=== PATIENT | female | born 1960 | race Two or more races ===

== ENCOUNTER 2024-05-08 15:35 | Inpatient (IN) | payer MEDICARE, MEDICAID ==
[~2024-05-08] VITALS: Ht 154.9 cm; Wt 54.1 kg
[2024-05-08 16:01] LABS: Basophils # (auto) 0.1 10 ^3/uL (0-0.2); Eosinophils # (auto) 0.2 10 ^3/uL (0-0.8); Hemoglobin 7.5 g/dL (12.2-16.2); Lymphocytes # (auto) 3.4 10 ^3/uL (0.4-5.4); Nucleated Red Blood Cells % 0.1 %
[2024-05-08 16:03] LABS: Basophils % (auto) 0.8 % (0.0-2.0); Eosinophils % (auto) 2.6 % (0.0-7.0); Hematocrit 26.8 % (36.0-46.0); Mean Corpuscular Hemoglobin 19.4 pg (28.0-32.0); Mean Corpuscular Hgb Conc. 28.2 g/dL (32.0-36.0); Mean Corpuscular Volume 68.7 fL (80.0-100.0); Monocytes # (auto) 0.6 10 ^3/uL (0-1.3); Monocytes % (auto) 8.1 % (0.0-12.0); Neutrophils % (auto) 41.5 % (37.0-80.0); Platelet Count (auto) 406 10^3/uL (140-450); Red Cell Distribution Width 18.7 % (11.8-14.3); White Blood Cell 7.2 10^3/uL (4.4-10.8)
[2024-05-08 16:11] LABS: Potassium 4.3 mmol/L (3.5-5.1); Sodium 143 mmol/L (136-145)
[2024-05-08 16:12] LABS: Anion Gap 13 (5-15); Carbon Dioxide 22 mmol/L (20-31)
[2024-05-08 16:13] LABS: Calcium 9.7 mg/dL (8.7-10.4)
[2024-05-08 16:17] LABS: BUN/Creatinine Ratio 11.8 (10.0-20.0); Blood Urea Nitrogen 11 mg/dL (9-23)
--- NOTE | 2024-05-08 16:17 | DVH ---
EXAM: XY CHEST TWO VIEWS ROUTINE CLINICAL HISTORY: chest pain COMPARISON: None TECHNIQUE: Frontal and lateral view of the chest was obtained FINDINGS: Lines and Tubes: None Lungs: No focal consolidation. Pleura: No effusion. No pneumothorax. Cardiomediastinal contours: Unremarkable. There is a large hiatal hernia. Pulmonary vasculature: Within normal limits. Bones: There is severe scoliotic curvature of the thoracolumbar spine. IMPRESSION: 1. No acute cardiopulmonary disease. 2. Large hiatal hernia. 3. Severe scoliotic curvature of the thoracolumbar spine. HS:Y
[2024-05-08 16:32] LABS: Chloride 108 mmol/L (98-107); Glucose 133 mg/dL (74-106)
--- NOTE | 2024-05-08 18:28 | ECG ---
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
--- NOTE | 2024-05-08 20:04 | ED.PDOC ---
History of Present Illness HPI Comments 63F with lupus presents with several months with bilateral achy chest pain that radiates down her arms that has been acutely worse the last 2 days. Patient reports his symptoms are associated with nausea and generalized fatigue. She has been compliant with her medications but reports she does not like to go to doctors. She denies any fever chills dysuria or polyuria sick contacts or recent travel Chief Complaint: Chest Pain Time Seen by MD: 15:41 Reviewed Notes: Nurses Notes Allergies: Uncoded Allergies: PENICILLIN (Allergy, Unknown, 05/08/24) Information Source: Patient Mode of Arrival: Ambulatory Past Medical History Past Medical History (Other): Lupus Constitutional: reports: fatigue Cardiovascular: reports: chest pain All Other Systems: Reviewed and Negative Physical Exam General Appearance: No Apparent Distress, Normal HEENT: Normal ENT Inspection, Pharynx Normal, TMs Normal Neck: Full Range of Motion, Non-Tender, Normal, Normal Inspection Respiratory: Chest Non-Tender, Lungs Clear, No Accessory Muscle Use, No Respiratory Distress, Normal Breath Sounds Cardiovascular: No Edema, No JVD, No Murmur, No Gallop, Normal Peripheral Pulses, Regular Rate/Rhythm Breast Exam: Deferred Gastrointestinal: No Organomegaly, Non Tender, No Pulsatile Mass, Normal Bowel Sounds, Soft Genitalia: Deferred Pelvic: Deferred Rectal: Deferred Extremities: No calf tenderness, Normal capillary refill, Normal inspection, Normal range of motion, Non-tender, No pedal edema Musculoskeletal : Apperance: Normal Neurologic: Alert, crap shooter II-XII nml as Tested, No Motor Deficits, Normal Affect, Normal Mood, No Sensory Deficits Cerebellar Function: Normal Reflexes: Normal Skin: Dry, Normal Color, Warm Lymphatic: No Adenopathy Was a procedure done? Was a procedure done?: No Differential Dx Considerations may include: ACS, CVA, electrolyte abnormality, viral syndrome X-Ray, Labs, Meds, VS Vital Signs Date Time Temp Pulse Resp B/P (MAP) Pulse Ox O2 Delivery O2 Flow Rate FiO2 05/08/24 16:53 85 05/08/24 16:27 98.0 91 16 188/87 (120) 100 05/08/24 15:44 91 Lab Test 05/08/24 18:45 05/08/24 16:35 05/08/24 15:44 Range/Units Troponin I High Sensitivity 9 9 11 </=34 ng/L White Blood Count 7.2 4.4-10.8 10^3/uL Red Blood Count 3.90 L 4.0-5.20 10^6/uL Hemoglobin 7.5 L 12.2-16.2 g/dL Hematocrit 26.8 L 36.0-46.0 % Mean Corpuscular Volume 68.7 L 80.0-100.0 fL Mean Corpuscular Hemoglobin 19.4 L 28.0-32.0 pg Mean Corpuscular Hemoglobin Concent 28.2 L 32.0-36.0 g/dL Red Cell Distribution Width 18.7 H 11.8-14.3 % Platelet Count 406 140-450 10^3/uL Mean Platelet Volume 6.9 6.9-10.8 fL Neutrophils (%) (Auto) 41.5 37.0-80.0 % Lymphocytes (%) (Auto) 47.0 10.0-50.0 % Monocytes (%) (Auto) 8.1 0.0-12.0 % Eosinophils (%) (Auto) 2.6 0.0-7.0 % Basophils (%) (Auto) 0.8 0.0-2.0 % Neutrophils # (Auto) 3.0 1.6-8.6 10 ^3/uL Lymphocytes # (Auto) 3.4 0.4-5.4 10 ^3/uL Monocytes # (Auto) 0.6 0-1.3 10 ^3/uL Eosinophils # (Auto) 0.2 0-0.8 10 ^3/uL Basophils # (Auto) 0.1 0-0.2 10 ^3/uL Nucleated Red Blood Cells 0.1 % Sodium Level 143 136-145 mmol/L Potassium Level 4.3 3.5-5.1 mmol/L Chloride Level 108 H 98-107 mmol/L Carbon Dioxide Level 22 20-31 mmol/L Anion Gap 13 5-15 Blood Urea Nitrogen 11 9-23 mg/dL Creatinine 0.93 0.550-1.02 mg/dL Glomerular Filtration Rate Calc 70 >90 mL/min BUN/Creatinine Ratio 11.8 10.0-20.0 Serum Glucose 133 H 74-106 mg/dL Calcium Level 9.7 8.7-10.4 mg/dL Time of 1ST Reevaluation: 20:03 Reevaluation 1ST: Improved Patient Education/Counseling: Diagnosis, Treatment Family Education/Counseling: No Family Present Departure 1 Departure Time of Disposition: 20:03 (Patient presented with chest pain that was concerning for possible STEMI, ACS, PE, Pneumonia, Muscle Strain, COPD, Dissection. Data: 1. I ordered and reviewed the result of at least 3 labs including a CBC, BMP, and Troponin. 2. I independently interpreted the following tests: EKG which shows sinus arrhythmia and Chest X-ray which shows benign chest.Risk:This patient has a high risk of morbidity due to further diagnostic testing or treatment and may suffer from an acute cardiac or respiratory disorder. Workup reveals concern for ACS versus lupus flare and patient should be admitted for further workup and possible expert consultation. ) Impression: Primary Impression: Chest pain Qualified Codes: R07.9 - Chest pain, unspecified Additional Impression: Lupus Disposition: ADMITTED INPATIENT Admit to: Med Surg Condition: Serious Critical Care Note Critical Care Time?: No Stability Stability form required: No Heart Score Heart Score: Heart Score Response (Comments) Value History Moderate Suspicious 1 EKG Repolarization Disturb 1 Age 45-64 1 Risk Factors 1 or 2 risk factors 1 Troponin 1-2 x's Normal limit 1 Total 5 QUE HUERTA MD May 08, 2024 20:04
[2024-05-08] MEDS ORDERED: DOCUSATE SOD 100 MG CAP PO PRN (20:30)
[2024-05-08] MEDS ORDERED: NITROGLYCERIN 0.4 MG SL TAB SL PRN (20:30)
[2024-05-08] MEDS ORDERED: ACETAMINOPHEN 325 MG TAB PO PRN (20:30)
[2024-05-08] MEDS ORDERED: MORPHINE SULFATE INJ 2 MG/ml SYRG IV PRN ×2 (20:30)
[2024-05-08] MEDS ORDERED: ONDANSETRON HCL 4 MG/2 ML VIAL IV PRN (20:30)
[2024-05-08] MEDS ORDERED: ATORVASTATIN 20 MG TAB PO ONE (20:45)
[2024-05-08 22:16] LABS: Erythrocyte Sedimentation Rate 14 mm/hr (0-20)
[2024-05-08 22:32] LABS: Alanine Aminotransferase 10 U/L (7-40); Albumin 4.2 g/dL (3.2-4.8); Alkaline Phosphatase 62 U/L (46-116); Anion Gap 6 (5-15); Aspartate Aminotransferase 13 U/L (13-40); BUN/Creatinine Ratio 15.1 (10.0-20.0); Bilirubin, Total 0.5 mg/dL (0.2-1.0); Blood Alcohol < 3.0 mg/dL (<10); Blood Urea Nitrogen 14 mg/dL (9-23); Calcium 9.6 mg/dL (8.7-10.4); Carbon Dioxide 23 mmol/L (20-31); Glucose 94 mg/dL (74-106); Magnesium 2.2 mg/dL (1.6-2.6); Potassium 4.6 mmol/L (3.5-5.1); Sodium 141 mmol/L (136-145); Total Protein 7.5 g/dL (5.7-8.2)
[2024-05-08 22:33] LABS: Chloride 112 mmol/L (98-107)
[2024-05-08] MEDS: ASPirin 81 mg TAB PO ONE (22:37)
[2024-05-08] MEDS: ATORVASTATIN 20 MG TAB PO SCH (22:37)
[2024-05-08 22:38] VITALS: PULSE 84; RESP 16; O2SAT 97
--- NOTE | 2024-05-08 22:41 | DVHHPRES ---
History of Present Illness Resident Creating Document: NASEEM DUMONT RESIDENT History of Present Illness Patient is 63-year-old female with past medical history of lupus, scoliosis, arthritis, hypertension came with a complaint of chest pain. As per patient she has been having bilateral chest pain that started 3-4 month before but lately it got worse last night, pain was 10 x 10 max severity, intermittent, radiating to the bilateral arm, sharp in nature increased with walking, breathing, decreased with resting. Patient also endorsed some shortness of breath with chest pain th at increased with walking, breathing and relieved with leaning forward. On further inquiry patient also reported feeling palpitation for a while. Patient denied any fever, cough, constipation or diarrhea, dysarthria or change in vision, melena or hematemesis or bloody diarrhea. Initial lab workup revealed patient has severe anemia with hemoglobin 7.5, MCV 68.7, HCT 26.8, MCHC HC 28.2, MCH 19.4, RDW 18.7, elevated BNP 336 0.15, D-dimer 0.42, alcohol less than 3. other initial lab workup including troponin I was negative. UDS negative, serum alcohol >3. Urinalysis negative for UTI. CXR revealed no acute cardiopulmonary disease, large hiatal hernia, severe scoliosis of the thoracolumbar spine. Past Medical History lupus, scoliosis, arthritis, hypertension Past Surgical History Bilateral cataract surgery Family History No significant family history Past Social History Denies smoking/alcoholism/drug abuse, lives with a granddaughter and her at home Review of Systems Review of Systems Allergy- penicillin Patient was seen today at the bedside. Patient Respiratory- denies cough or wheezing Gastrointestinal- denies any rectal bleeding, nausea or vomiting Musculoskeletal-denies acute joint swelling or tenderness or redness Neurological- denies acute dysarthria, dysphagia, change in vision Psychiatry- denies depression or SI or HI Skin- denies acute rash or purpura Allergies: Coded Allergies: Penicillins (Verified Allergy, Unknown, 05/08/24) Medications Current Medications Medications Dose Ordered Sig/Saroj Route Start Time Stop Time Status Last Admin Dose Admin Ondansetron HCl 4 mg Q4HP PRN IV 05/08/24 20:30 Docusate Sodium 100 mg BIDPRN PRN PO 05/08/24 20:30 Acetaminophen 650 mg Q6HP PRN PO 05/08/24 20:30 Morphine Sulfate 2 mg Q4HPRN PRN IV 05/08/24 20:30 Nitroglycerin 0.4 mg Q5MINP PRN SL 05/08/24 20:30 Morphine Sulfate 2 mg Q30M PRN IV 05/08/24 20:30 Aspirin 81 mg DAILY PO 05/09/24 10:00 Atorvastatin Calcium 40 mg HS PO 05/08/24 22:00 Exam Vital Signs Vital Signs Date Time Temp Pulse Resp B/P (MAP) Pulse Ox O2 Delivery O2 Flow Rate FiO2 05/08/24 16:53 85 05/08/24 16:27 98.0 16 188/87 (120) 100 Exam General examination- awake, alert oriented, conversant HEENT- PEERLA, no acute nasal discharge Cardiovascular- S1-S2 audible, rate and rhythm regular, no murmur Respiratory- CTAB, no wheeze or rhonchi Gastrointestinal-nontender, bowel sound+. Nondistended Musculoskeletal-scoliosis, joint deformity of the bilateral hands Lower extremity- trace leg edema Neurological- cranial nerves intact, no acute dysarthria or dysphagia Psychiatry- denies depression or SI or HI Skin- fragile skin Labs/Xrays Labs Test 05/08/24 21:55 05/08/24 18:45 05/08/24 15:44 Range/Units D-Dimer, Quantitative 0.42 0.0-0.49 mg/L FEU Troponin I High Sensitivity 9 </=34 ng/L C-Reactive Protein High Sensitivity 0.04 <1.0 mg/dL Thyroid Stimulating Hormone (TSH) 2.05 0.55-4.78 uIU/mL White Blood Count 7.2 4.4-10.8 10^3/uL Red Blood Count 3.90 L 4.0-5.20 10^6/uL Hemoglobin 7.5 L 12.2-16.2 g/dL Hematocrit 26.8 L 36.0-46.0 % Mean Corpuscular Volume 68.7 L 80.0-100.0 fL Mean Corpuscular Hemoglobin 19.4 L 28.0-32.0 pg Mean Corpuscular Hemoglobin Concent 28.2 L 32.0-36.0 g/dL Red Cell Distribution Width 18.7 H 11.8-14.3 % Platelet Count 406 140-450 10^3/uL Mean Platelet Volume 6.9 6.9-10.8 fL Neutrophils (%) (Auto) 41.5 37.0-80.0 % Lymphocytes (%) (Auto) 47.0 10.0-50.0 % Monocytes (%) (Auto) 8.1 0.0-12.0 % Eosinophils (%) (Auto) 2.6 0.0-7.0 % Basophils (%) (Auto) 0.8 0.0-2.0 % Neutrophils # (Auto) 3.0 1.6-8.6 10 ^3/uL Lymphocytes # (Auto) 3.4 0.4-5.4 10 ^3/uL Monocytes # (Auto) 0.6 0-1.3 10 ^3/uL Eosinophils # (Auto) 0.2 0-0.8 10 ^3/uL Basophils # (Auto) 0.1 0-0.2 10 ^3/uL Nucleated Red Blood Cells 0.1 % Erythrocyte Sedimentation Rate 14 0-20 mm/hr B-Type Natriuretic Peptide 336.15 0-100 pg/mL Assessment/Plan Assessment/Plan #Acute on chronic chest pain under evaluation -rule out acute coronary syndrome -EKG no ST elevation -troponin I negative -D-dimer nonsignificant - No acute cardiopulmonary disease. Large hiatal hernia. Severe scoliotic curvature of the thoracolumbar spine. -continue aspirin 81 mg daily -continue atorvastatin 40 mg q.h.s. #Hypertensive urgency -BP 188/87, 190/94 -patient complained of chest pain -continue hydralazine 10 mg q.6h p.r.n. -amlodipine 5 mg p.o. daily -monitor BP #Suspected hypertensive heart failure -BNP 336 -continue Lasix 20 mg IV daily -pending echo 2D #Severe microcytic hypochromic anemia likely iron-deficiency anemia -HGB-7.5 -serum iron 16, ferritin 3.7, -as per Ganzoni equation for [id number] -continue IV iron as prescribed -ordered FOBT -ordered blood smear #Lupus -follow up outpatient #Scoliosis -follow up outpatient # Arthritis -continue pain medication as prescribed # hiatal hernia -follow up outpatient Goals of care/advance care planning; FULL CODE; discussed with the patient >15 minutes PUD prophylaxis: Pantoprazole DVT prophylaxis: Lovenox Plan discussed with Dr. Paramr, nursing staff, patient Total time spent on patient evaluation, chart review, assessment and plan, discussion discussion >30 minutes Plan discussed with: Patient Plan discussed with: Patient, Daughter, Other (RN) My Orders Orders - NASEEM DUMONT Procedure Category Date Status Time Admit ADMIT 05/08/24 Transmitted 20:27 Code Status CODE 05/08/24 Transmitted 20:27 Ondansetron Hcl PHA 05/08/24 In Process (Zofran) 20:30 Docusate Sodium PHA 05/08/24 In Process Capsule (Colace 20:30 Complete Blood Count LAB 05/09/24 Verified 04:00 Comprehensive LAB 05/09/24 Verified Metabolic Panel 04:00 Cardiac DIET 05/09/24 Transmitted Diet-2gna,Lofat,Lochol Breakfast Acetaminophen Tablet PHA 05/08/24 In Process (Tylenol Tablet) 20:30 Morphine Sulfate PHA 05/08/24 In Process Injection 20:30 Nitroglycerin PHA 05/08/24 In Process Sublingual (Ntrostat 20:30 Morphine Sulfate PHA 05/08/24 In Process Injection 20:30 Oxygen By Nasal RT 05/08/24 Transmitted Cannula 20:27 Stat Ekg For Chest [facility] 05/08/24 In Process Pain 20:27 Notify Md Of Changes [facility] 05/08/24 In Process From Base 20:27 Auto Body Repair Teacher For [facility] 05/08/24 In Process 24 Hours 20:27 Emergency Dysrhythmia [facility] 05/08/24 In Process Protocol 20:27 Rhythm Strips Once [facility] 05/08/24 In Process Every Shift 20:27 Magnesium LAB 05/08/24 In Process 20:31 Comprehensive LAB 05/08/24 In Process Metabolic Panel 20:31 Drug Screen LAB 05/08/24 Logged 20:31 Blood Alcohol LAB 05/08/24 In Process 20:31 Echo 2d Mode Cardiac US 05/08/24 Logged DOP 20:31 Aspirin Tablet PHA 05/09/24 In Process 10:00 Atorvastatin (Lipitor) PHA 05/08/24 In Process 22:00 Date of Service: May 08, 2024 Billing Provider: TOY PARMAR MD Secondary Visit Codes: [id number] CARE PLAN 30 MINUTES NASEEM DUMONT May 08, 2024 22:41 TOY PARMAR MD May 12, 2024 18:16
[2024-05-08] MEDS ORDERED: hydrALAZINE HCL 20 MG/ML VL IV PRN (22:45)
[2024-05-08] MEDS ORDERED: amLODIPine BESYLATE 5 MG TAB PO ONE (22:45)
[2024-05-08] MEDS ORDERED: hydrALAZINE HCL 20 MG/ML VL IV ONE (22:45)
[2024-05-08] MEDS ORDERED: HYDROcodone-ACET 10/325MG TAB PO PRN (22:45)
[2024-05-08] MEDS: amLODIPine BESYLATE 5 MG TAB PO ONE (23:06)
[2024-05-08] MEDS: HYDROcodone-ACET 10/325MG TAB PO ONE (23:07)
[2024-05-08] MEDS: hydrALAZINE HCL 20 MG/ML VL IV ONE (23:49)
[2024-05-09] VITALS (11 sets, daily range): BP systolic 108–159; BP diastolic 64–91; PULSE 82–96; RESP 9–20; TEMP 97.6–98.9; O2SAT 96–100
[2024-05-09 00:23] LABS: Ferritin 3.7 ng/mL (10-291)
[2024-05-09 00:24] LABS: Folate (Folic Acid) 13.5 ng/mL (>5.38)
[2024-05-09] MEDS: ENOXAPARIN SOD 30 MG/0.3 ML SYRINGE SC ONE (00:39)
[2024-05-09] MEDS: PANTOPRAZOLE 40 MG TAB PO ONE (00:39)
[2024-05-09] MEDS: FUROSEMIDE 40 MG/4 ML VIAL IV ONE (00:51)
[2024-05-09] MEDS: ENOXAPARIN SOD 30 MG/0.3 ML SYRINGE SC SCH (00:52)
[2024-05-09] MEDS ORDERED: TEMAZEPAM 15 MG CAP PO PRN (01:15)
[2024-05-09] MEDS: TEMAZEPAM 15 MG CAP PO ONE (01:19)
[2024-05-09] MEDS ORDERED: HYDR-4072 PO (01:37)
[2024-05-09 03:37] LABS: Urine Bacteria None Seen /hpf (None Seen)
[2024-05-09 03:44] LABS: Urine Blood Negative /uL (Negative); Urine Clarity Clear (Clear); Urine Color Colorless (Yellow); Urine Protein, UAD Negative (Negative); Urine Specific Gravity 1.007 (1.001-1.035); Urine Urobilinogen Normal (Negative); Urine WBC <1 /hpf (0 - 5); Urine pH 5.5 (5.0-9.0)
[2024-05-09 03:56] LABS: Amphetamine Screen, Urine Neg (NEGATIVE); Barbiturate Scree,Urine Neg (NEGATIVE); Benzodiazephine Screen, Urine Neg (NEGATIVE)
[2024-05-09 03:57] LABS: Cannabinoid Screen, Urine Neg (NEGATIVE); Cocaine Screen, Urine Neg (NEGATIVE); Opiate Scree,Urine Neg (NEGATIVE); Phencyclidine Screen, Urine Neg (NEGATIVE)
[2024-05-09] MEDS: HYDROcodone-ACET 10/325MG TAB PO PRN (08:41)
[2024-05-09] MEDS: ASPirin 81 mg TAB PO SCH (10:09)
[2024-05-09] MEDS: amLODIPine BESYLATE 5 MG TAB PO SCH (10:09)
[2024-05-09] MEDS: FUROSEMIDE 20 MG/2 ML VIAL IV SCH (10:10)
[2024-05-09 10:44] LABS: Basophils # (auto) 0.1 10 ^3/uL (0-0.2); Eosinophils # (auto) 0.1 10 ^3/uL (0-0.8); Mean Corpuscular Volume 66.9 fL (80.0-100.0); Monocytes # (auto) 0.8 10 ^3/uL (0-1.3); Nucleated Red Blood Cells % 0.1 %; Platelet Count (auto) 370 10^3/uL (140-450)
[2024-05-09 10:47] LABS: Basophils % (auto) 1.3 % (0.0-2.0); Eosinophils % (auto) 1.9 % (0.0-7.0); Hematocrit 23.8 % (36.0-46.0); Lymphocytes % (auto) 32.2 % (10.0-50.0); Mean Corpuscular Hemoglobin 19.6 pg (28.0-32.0); Mean Corpuscular Hgb Conc. 29.3 g/dL (32.0-36.0); Monocytes % (auto) 13.1 % (0.0-12.0); Neutrophils # (auto) 3.1 10 ^3/uL (1.6-8.6); Neutrophils % (auto) 51.5 % (37.0-80.0); Red Blood Cells 3.56 10^6/uL (4.0-5.20); Red Cell Distribution Width 18.6 % (11.8-14.3); White Blood Cell 6.1 10^3/uL (4.4-10.8)
[2024-05-09 11:13] LABS: Alanine Aminotransferase 12 U/L (7-40); Albumin 4.2 g/dL (3.2-4.8); Alkaline Phosphatase 59 U/L (46-116); Anion Gap 7 (5-15); BUN/Creatinine Ratio 15.8 (10.0-20.0); Bilirubin, Total 0.9 mg/dL (0.2-1.0); Blood Urea Nitrogen 16 mg/dL (9-23); Carbon Dioxide 27 mmol/L (20-31); Chloride 104 mmol/L (98-107); Sodium 138 mmol/L (136-145)
[2024-05-09 11:14] LABS: Total Protein 7.4 g/dL (5.7-8.2)
[2024-05-09 11:16] LABS: Aspartate Aminotransferase 12 U/L (13-40); Glucose 130 mg/dL (74-106)
[2024-05-09 11:58] LABS: Hypochromia Moderate
[2024-05-09 11:59] LABS: Platelet Estimate Adequate
[2024-05-09] MEDS: IRON SUCROSE COMPLEX 110 ML IV SCH (12:30)
--- NOTE | 2024-05-09 13:46 | DVHSR ---
APPROVED REPORT EXAM: Two-dimensional and M-mode echocardiogram with Doppler and color Doppler. Blood Pressure: 138/77 mmHg INDICATION Chest Pain RISK FACTORS Height: 5'1", Weight: 119 DIMENSIONS LVDd4.0 (3.8-5.7cm)LA (2D)3.2 (1.9-4.0cm)Aortic Root3.5 (2.0-3.7cm) LVDs2.9 (2.5-4.0cm)LA (MM) (1.9-4.0cm)Aortic Cusp Exc1.8 (1.5-2.0cm) EF (%) 55.0 (55-70%)Rt. Atrium3.4 (1.9-4.0cm)Asc. Aorta4.1 cm IVSd1.1 (0.7-1.1cm)RV (D) (1.8-2.4cm) PWd0.9 (0.7-1.1cm) Mitral Valve MitralMitral Stenosis E wave0.62m/sMV Mean GR.mmHg A wave0.76m/sMV Peak GR.mmHg E/A ratio0.82D MVAcm2 DECEL [id number] 1/2 Timems Aortic Valve Aortic ValveAortic Stenosis V10.83m/Judith Mean GR.3mmHg V21.19m/Judith Peak GR.6mmHg LVOT Diameter2.4 (1.8-2.4cm)Doppler AVA3.15cm2 2D AVA3.06cm2 Pulmonic Valve V20.90m/s Other Information Quality : Technically LimitedRhythm : Technically limited study due to body habitus. Conclusion Normal left ventricular size and dimension. Normal left ventricular systolic function estimated ejec tion fraction 55%. There is a grade 1 diastolic dysfunction. Normal right ventricular size and dimension. Normal right ventricular systolic function. Normal biatrial size and dimension. Normal aortic valve structure and function. Normal mitral valve structure and function. Normal tricuspid valve structure and function. The pulmonary valve is grossly normal. No pericardial effusion.
[2024-05-09 14:16] LABS: Hemoglobin 6.8 g/dL (12.2-16.2)
--- NOTE | 2024-05-09 20:38 | DVHPNRES ---
Progress Note Date Seen: May 09, 2024 Resident Creating Document: JHNiurkaJJANE SaeedPERLAPEG RESIDENT Medical Necessity Reason Pt with a Central, PICC or Fol: No Subjective Review of Systems Patient is 63 year old female with a past medical history as described below came to the ED with a chief complaint of Chest Pain. Patient reported that for the last about 4 months, she has been having chest pain exacerbated on exertion while walking more than normal distances, pain radiated across the chest, intermittant in nature and radiating the bilateral upper shoulders, no association with taking deep breaths or coughing. Patient has recently been also experiencing chest pain while sleeping and she gets up in the middle of the night, sits up which relieves the pain. patient denies of association of pain with food. no difficulty swallowing, no pain on swallowing. denies nausea, vomiting, diarrhoea. Patient denies recent sickness. 12 lead ECG showed sinus rhythm with no evidence of acute ischaemia. Troponin levels were within normal limits. Past medical history: Lupus, scoliosis, HTN Past surgical history: Foot surgery, breast implants, cataract surgery, C section Social history: denies smoking, alcohol, drug use Home medications: hydroxychloroquine 200mg once daily, norco for pain Review of systems Patient seen and examined at bedside. A/O X 4. does not report chest pain at exam in the morning No nausea, vomiting, diarrhoea Hemoglobin repeated - dropped to 6.8mg/dl, transfused with 1 unit PRBC patient has not passed stool. Objective vital signs Vital Sign Date Time Temp Pulse Resp B/P (MAP) Pulse Ox O2 Delivery O2 Flow Rate FiO2 05/09/24 16:54 98.2 91 18 129/64 (85) 96 98.2 05/09/24 08:00 Room Air* 0 21 Total Intake and Output 05/08/24 05/08/24 05/09/24 15:00 23:00 07:00 Intake Total 400 ml Balance 400 ml medications Current Medications Medications Dose Ordered Sig/Saroj Route Start Time Stop Time Status Last Admin Dose Admin Ondansetron HCl 4 mg Q4HP PRN IV 05/08/24 20:30 Docusate Sodium 100 mg BIDPRN PRN PO 05/08/24 20:30 Acetaminophen 650 mg Q6HP PRN PO 05/08/24 20:30 Nitroglycerin 0.4 mg Q5MINP PRN SL 05/08/24 20:30 Morphine Sulfate 2 mg Q30M PRN IV 05/08/24 20:30 Aspirin 81 mg DAILY PO 05/09/24 10:00 05/09/24 10:09 81 MG Atorvastatin Calcium 40 mg HS PO 05/08/24 22:00 05/08/24 22:37 40 MG Hydralazine HCl 10 mg Q6HP PRN IV 05/08/24 22:45 Amlodipine Besylate 5 mg DAILY PO 05/09/24 10:00 05/09/24 10:09 5 MG Acetaminophen/ Hydrocodone Bitart 1 tab Q6HP PRN PO 05/08/24 22:45 05/09/24 15:16 1 TAB Enoxaparin Sodium 30 mg DAILY@0100 SC 05/09/24 01:00 Furosemide 20 mg DAILY IV 05/09/24 10:00 05/09/24 10:10 20 MG Temazepam 15 mg HSPRN PRN PO 05/09/24 01:15 Iron Sucrose 110 ml @ 110 mls/hr DAILY@1200 IV 05/09/24 12:00 05/13/24 12:59 05/09/24 12:30 110 MLS/HR Pantoprazole Sodium 40 mg BID IV 05/09/24 22:00 Examination Physical Examination Gen - mild conjunctival pallor , no icterus, no cyanosis, no clubbing, no LAD, no edema. Skin - Patients skin is warm and dry, looks slightly pale HEENT - normocephalic, atraumatic, dry mucous membranes. Neck - full ROM, no LAD, no JVD. Pulmonary - B/L equal breath sounds heard with bibasilar crackles, no wheezing. cardiovascular - normal S1,S2 heard. no murmurs heard. bowel sounds heard at the left lower sternal border. GI - soft abdomen without tenderness to palpation. no hepatospleenomegaly. Bowel sounds normoactive Neurological - Patient is A/O X 3 . Bilateral upper extremity strength 5/5, bilateral lower extremity strength 5/5, no facial droop, normal speech, no tremor, no sensory loss laboratory and microbiology Laboratory Tests 05/09/24 12:56 05/09/24 10:33 Test 05/09/24 10:33 Range/Units Serum Glucose 130 H 74-106 mg/dL Problem List/Assessment/Plan Problem List/Assessment/Plan Assessment and Plan # Chest Pain, ruled out ACS - troponin within normal limits - 12 lead ECG shows sinus rhythm with no evidence of acute ischaemia - on aspirin 81mg daily - atorvastatin 40mg daily # Hypertensive Urgency - given hydralazine 10 mg IV once - started on amlodipine 5mg daily # Chest pain likely d/t ?dyspepsia, GERD # Dyspepsia # Hiatal Hernia - large hiatal hernia seen on chest X ray - started on protonix 40 mg Bid IV # Microcytic hypochromic anemia # Iron deficiency # ?Acute GI bleed - Hgb 7.5-->7--> 6.8 - patient given 1U PRBC - Iron panel shows low iron, low ferritin, low % saturation - stool occult blood pending Goals of care discussed with the patient for over 27 mins. Full code Plan discussed with Plan discussed with: Patient My Orders My Orders Orders - JASMINA ATWOOD Procedure Category Date Status Time Discontinue Tele RICHARD 05/09/24 In Process 10:50 Transfer Orders XFER 05/09/24 Transmitted 10:50 Type And Screen BBK 05/09/24 In Process 10:54 Stool Occult Blood LAB 05/09/24 Logged 10:54 Packedcell-Noactive BBK 05/09/24 In Process Bleeding 15:58 Pulse Ox Cont Per Day RT 05/09/24 Logged 15:58 Vital Signs RICHARD 05/09/24 In Process 15:58 Administer Blood RICHARD 05/09/24 In Process Products 15:58 Clear Liq Diet DIET 05/09/24 Transmitted Dinner Pantoprazole PHA 05/09/24 In Process (Protonix) 22:00 Complete Blood Count LAB 05/10/24 Verified 04:00 Comprehensive LAB 05/10/24 Verified Metabolic Panel 04:00 Vitamin B12 LAB 05/10/24 Verified 04:00 Folate (Folic Acid) LAB 05/10/24 Verified 04:00 Date of Service: May 09, 2024 Billing Provider: ELLEN STEARNS MD Common Visit Codes: [id number] INP/OBS CARE(HIGH) JASMINA ATWOOD May 09, 2024 20:38 ELLEN STEARNS MD May 13, 2024 09:23
[2024-05-09] MEDS: PANTOPRAZOLE 40 MG/10 ML VIAL INJ IV SCH (21:13)
[2024-05-10 01:00] VITALS: BP 111/78; PULSE 83; RESP 17; TEMP 97.4; O2SAT 93
[2024-05-10 02:39] VITALS: BP 120/79; PULSE 79; RESP 18; TEMP 97.8
[2024-05-10 05:00] VITALS: BP 100/68; PULSE 83; RESP 18; TEMP 98; O2SAT 83
[2024-05-10] MEDS ORDERED: PANTOPRAZOLE 40 MG TAB PO SCH (06:00)
[2024-05-10 06:46] LABS: Eosinophils # (auto) 0.1 10 ^3/uL (0-0.8); Eosinophils % (auto) 2.1 % (0.0-7.0); Monocytes # (auto) 0.6 10 ^3/uL (0-1.3); Nucleated Red Blood Cells % 0.1 %
[2024-05-10 06:49] LABS: Basophils # (auto) 0 10 ^3/uL (0-0.2); Basophils % (auto) 0.7 % (0.0-2.0); Hematocrit 27.9 % (36.0-46.0); Hemoglobin 8.6 g/dL (12.2-16.2); Lymphocytes # (auto) 3.2 10 ^3/uL (0.4-5.4); Lymphocytes % (auto) 51.8 % (10.0-50.0); Mean Corpuscular Hemoglobin 21.2 pg (28.0-32.0); Mean Corpuscular Hgb Conc. 30.9 g/dL (32.0-36.0); Mean Corpuscular Volume 68.4 fL (80.0-100.0); Monocytes % (auto) 9.8 % (0.0-12.0); Neutrophils # (auto) 2.2 10 ^3/uL (1.6-8.6); Neutrophils % (auto) 35.6 % (37.0-80.0); Platelet Count (auto) 332 10^3/uL (140-450); Red Blood Cells 4.08 10^6/uL (4.0-5.20); Red Cell Distribution Width 18.6 % (11.8-14.3); White Blood Cell 6.1 10^3/uL (4.4-10.8)
[2024-05-10 07:05] LABS: Alanine Aminotransferase 10 U/L (7-40); Alkaline Phosphatase 57 U/L (46-116); Anion Gap 10 (5-15); Aspartate Aminotransferase 14 U/L (13-40); BUN/Creatinine Ratio 15.2 (10.0-20.0); Blood Urea Nitrogen 15 mg/dL (9-23); Calcium 9.7 mg/dL (8.7-10.4); Carbon Dioxide 26 mmol/L (20-31); Chloride 106 mmol/L (98-107); Glucose 86 mg/dL (74-106); Potassium 3.7 mmol/L (3.5-5.1); Sodium 142 mmol/L (136-145); Total Protein 6.8 g/dL (5.7-8.2)
[2024-05-10 07:06] LABS: Folate (Folic Acid) 15.65 ng/mL (>5.38)
[2024-05-10 07:08] LABS: Bilirubin, Total 1.2 mg/dL (0.2-1.0)
[2024-05-10 08:00] VITALS: PULSE 76; PULSE 77; RESP 98
[2024-05-10 09:00] VITALS: BP 137/77; PULSE 76; RESP 16; TEMP 97.9; O2SAT 98
[2024-05-10] MEDS ORDERED: HYDR200T36 PO (10:37)
[2024-05-10 12:45] VITALS: BP 120/65; PULSE 72; RESP 18; TEMP 97.8; O2SAT 98
[2024-05-10] MEDS ORDERED: SUCR1TAB31 OR (13:17)
[2024-05-10] MEDS ORDERED: AMLO1TAB22 PO (13:17)
[2024-05-10] MEDS ORDERED: PANT40TA2 PO (13:17)
--- NOTE | 2024-05-10 21:47 | DVHDSRES ---
Discharge Summary Date of Admission Resident Creating Document: JASMINA ATWOOD RESIDENT May 08, 2024 at 20:27 Date of Discharge: May 10, 2024 Admitting Diagnosis #Acute on chronic chest pain under evaluation -rule out acute coronary syndrome #Hypertensive urgency #Suspected hypertensive heart failure #Severe microcytic hypochromic anemia likely iron-deficiency anemia #Lupus #Scoliosis # Arthritis # hiatal hernia Wounds: no wounds Labs/Diagnostic Data: Laboratory Results Test 05/10/24 05:45 05/09/24 10:33 05/09/24 03:08 05/08/24 23:45 White Blood Count 6.1 10^3/uL (4.4-10.8) Red Blood Count 4.08 10^6/uL (4.0-5.20) Hemoglobin 8.6 g/dL (12.2-16.2) Hematocrit 27.9 % (36.0-46.0) Mean Corpuscular Volume 68.4 fL (80.0-100.0) Mean Corpuscular Hemoglobin 21.2 pg (28.0-32.0) Mean Corpuscular Hemoglobin Concent 30.9 g/dL (32.0-36.0) Red Cell Distribution Width 18.6 % (11.8-14.3) Platelet Count 332 10^3/uL (140-450) Mean Platelet Volume 7.5 fL (6.9-10.8) Neutrophils (%) (Auto) 35.6 % (37.0-80.0) Lymphocytes (%) (Auto) 51.8 % (10.0-50.0) Monocytes (%) (Auto) 9.8 % (0.0-12.0) Eosinophils (%) (Auto) 2.1 % (0.0-7.0) Basophils (%) (Auto) 0.7 % (0.0-2.0) Neutrophils # (Auto) 2.2 10 ^3/uL (1.6-8.6) Lymphocytes # (Auto) 3.2 10 ^3/uL (0.4-5.4) Monocytes # (Auto) 0.6 10 ^3/uL (0-1.3) Eosinophils # (Auto) 0.1 10 ^3/uL (0-0.8) Basophils # (Auto) 0 10 ^3/uL (0-0.2) Nucleated Red Blood Cells 0.1 % Sodium Level 142 mmol/L (136-145) Potassium Level 3.7 mmol/L (3.5-5.1) Chloride Level 106 mmol/L (98-107) Carbon Dioxide Level 26 mmol/L (20-31) Anion Gap 10 (5-15) Blood Urea Nitrogen 15 mg/dL (9-23) Creatinine 0.99 mg/dL (0.550-1.02) Glomerular Filtration Rate Calc 65 mL/min (>90) BUN/Creatinine Ratio 15.2 (10.0-20.0) Serum Glucose 86 mg/dL (74-106) Calcium Level 9.7 mg/dL (8.7-10.4) Total Bilirubin 1.2 mg/dL (0.2-1.0) Aspartate Amino Transferase (AST) 14 U/L (13-40) Alanine Aminotransferase (ALT) 10 U/L (7-40) Alkaline Phosphatase 57 U/L (46-116) Total Protein 6.8 g/dL (5.7-8.2) Albumin 4.0 g/dL (3.2-4.8) Vitamin B12 Level 384 pg/mL (211-911) Folic Acid 15.65 ng/mL (>5.38) Platelet Estimate Adequate Hypochromasia (manual) Moderate Microcytosis Moderate Schistocytes Few Magnesium Level 1.9 mg/dL (1.6-2.6) Iron Level 17 ug/dL (50-170) Total Iron Binding Capacity 425 ug/dL (250-425) Percent Iron Saturation 4.0 % (15-50) Urine Color Colorless (Yellow) Urine Clarity Clear (Clear) Urine pH 5.5 (5.0-9.0) Urine Specific [place] 1.007 (1.001-1.035) Urine Protein Negative (Negative) Urine Ketones Negative (Negative) Urine Blood Negative /uL (Negative) Urine Nitrite Negative (Negative) Urine Bilirubin Negative (Negative) Urine Urobilinogen Normal mg/dL (Negative) Urine Leukocyte Esterase Negative /uL (Negative) Urine RBC 3 /hpf (0 - 4) Urine WBC <1 /hpf (0 - 5) Urine Squamous Epithelial Cells Few /hpf (<5) Urine Bacteria None seen /hpf (None Seen) Urine Glucose Normal mg/dL (Normal) Urine Opiates Screen Neg (NEGATIVE) Urine Fentanyl Screen Neg (NEGATIVE) Urine Barbiturates Screen Neg (NEGATIVE) Urine Phencyclidine Screen Neg (NEGATIVE) Urine Amphetamines Screen Neg (NEGATIVE) Urine Benzodiazepines Screen Neg (NEGATIVE) Urine Cocaine Screen Neg (NEGATIVE) Urine Cannabinoids Screen Neg (NEGATIVE) Ferritin 3.7 ng/mL (10-291) Test 05/08/24 21:55 05/08/24 18:45 05/08/24 15:44 Plasma/Serum Blood Alcohol < 3.0 mg/dL (<10) D-Dimer, Quantitative 0.42 mg/L FEU (0.0-0.49) Troponin I High Sensitivity 9 ng/L (</=34) C-Reactive Protein High Sensitivity 0.04 mg/dL (<1.0) Thyroid Stimulating Hormone (TSH) 2.05 uIU/mL (0.55-4.78) Erythrocyte Sedimentation Rate 14 mm/hr (0-20) B-Type Natriuretic Peptide 336.15 pg/mL (0-100) Other Laboratory Tests 05/10/24 05:45 Brief Hx & Hospital Course: HPI Patient is 63 year old female with a past medical history as described below came to the ED with a chief complaint of Chest Pain. Patient reported that for the last about 4 months, she has been having chest pain exacerbated on exertion while walking more than normal distances, pain radiated across the chest, intermittant in nature and radiating the bilateral upper shoulders, no association with taking deep breaths or coughing. Patient has recently been also experiencing chest pain while sleeping and she gets up in the middle of the night, sits up which relieves the pain. patient denies of association of pain with food. no difficulty swallowing, no pain on swallowing. denies nausea, vomiting, diarrhoea. Patient denies recent sickness. 12 lead ECG showed sinus rhythm with no evidence of acute ischaemia. Troponin levels were within normal limits. Past medical history: Lupus, scoliosis, HTN Past surgical history: Foot surgery, breast implants, cataract surgery, C section Social history: denies smoking, alcohol, drug use Home medications: hydroxychloroquine 200mg once daily, norco for pain Hospital course As the patient came to the hospital with the chief complaint of chest pain, 12 lead ECG showed sinus rhythm with no evidence of acute ischaemia. Troponin levels were within normal limits. ACS was ruled out. Blood pressure elevated at the time of admission, IV hydralazine was given and the patient was started on amlodipine 5 mg daily. Chest X ray revealed large hiatal hernia. Patient had a low hemoglobin on admission which further dropped to 6.8g/dl and 1 unit of PRBC was transfused. Protonix 40mg IV was started and the patient was put on clear liquid diet. Hgb improved to 8.6g/dl Patient denied chest pain, abdominal pain, nausea, vomiting or diarrhoea. Patient was discharged in stable condition to home. Discharge Diagnosis # Chest Pain, ruled out ACS # Hypertensive Urgency # Chest pain likely d/t ?dyspepsia, GERD # Dyspepsia # Hiatal Hernia # Microcytic hypochromic anemia # Iron deficiency # ?Acute GI bleed Discharge Plan Follow up in the discharge clinic in one week Follow up in the surgery outpatient clinic in 1-2 weeks for further management of Hiatal hernia Medications: Amlodipine 5mg daily, Protonix 40mg dialy, Sucralfate 1gm PO BIDPRN. Diet: Advised to avoid spicy foods, caffeine. Consults/Reason for consult no consultation Operations or Procedures Echocardiogram showed Normal left ventricular size and dimension. Normal left ventricular systolic function estimated ejection fraction 55%. There is a grade 1 diastolic dysfunction. Normal right ventricular size and dimension. Normal right ventricular systolic function. Normal biatrial size and dimension. Normal aortic valve structure and function. Normal mitral valve structure and function. Normal tricuspid valve structure and function. The pulmonary valve is grossly normal. No pericardial effusion. Chest X ray showed FINDINGS: Lines and Tubes: None Lungs: No focal consolidation. Pleura: No effusion. No pneumothorax. Cardiomediastinal contours: Unremarkable. There is a large hiatal hernia. Pulmonary vasculature: Within normal limits. Bones: There is severe scoliotic curvature of the thoracolumbar spine. IMPRESSION: 1. No acute cardiopulmonary disease. 2. Large hiatal hernia. 3. Severe scoliotic curvature of the thoracolumbar spine. Condition at Discharge: Good Final Diagnosis/Problems List # Chest Pain, ruled out ACS # Hypertensive Urgency # Chest pain likely d/t ?dyspepsia, GERD # Dyspepsia # Hiatal Hernia # Microcytic hypochromic anemia # Iron deficiency # ?Acute GI bleed Discharge Disposition: Home Discharge Instruct/Medications Diet: Regular Activity: No Restrictions, As Tolerated Follow Up/Referral: Follow up in the discharge clinic in one week Follow up with the PCP in one week Follow up in the surgery outpatient clinic within 2 weeks Medications: as per EMR Discharge Statement: "Patient was advised to return to the ER or call 911 if any headaches, dizziness, shortness of breath, chest pain, abdominal pain, bleeding, fevers, or worsening of medical condition. Patient was counseled about treatment plan, medications, possible side effects, patientverbalized understanding. All questions were answered to the best of my ability. This discharge took greater then 30 minutes in planning, reviewing documentation, counseling the patient, and discussing with other team members." ASSESSMENT ASSESSMENT Assessment # Chest Pain, ruled out ACS # Hypertensive Urgency # Chest pain likely d/t ?dyspepsia, GERD # Dyspepsia # Hiatal Hernia # Microcytic hypochromic anemia # Iron deficiency # ?Acute GI bleed Date of Service: May 10, 2024 Billing Provider: ELLEN STEARNS MD Common Visit Codes: 02748-AQT/OBS DISCH DAY >30min JASMINA ATWOOD RESIDENT May 10, 2024 21:47 ELLEN STEARNS MD May 13, 2024 09:18
--- NOTE | 2024-05-13 15:10 | ECG ---
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
== END 2024-05-10 17:30 | disposition home or self-care (01) | DRG 291 ==
LOC: ER 15:35 → TELE 20:27 → TELE-CENTR 23:47 → CENTRAL 05-10 02:12
PROVIDERS: ADMIT Student in an Organized Health Care Education/Training Program; ATTEND Emergency Medicine
PROC: 30233N1 Transfusion of Nonautologous Red Blood Cells into Peripheral Vein, Percutaneous Approach (ICD-10-PCS; principal; 2024-05-09)
DX: I11.0 Hypertensive heart disease with heart failure (principal); I50.31 Acute diastolic (congestive) heart failure; K92.2 Gastrointestinal hemorrhage, unspecified; K21.9 Gastro-esophageal reflux disease without esophagitis; I16.0 Hypertensive urgency; D50.9 Iron deficiency anemia, unspecified; R10.13 Epigastric pain; M41.9 Scoliosis, unspecified; K44.9 Diaphragmatic hernia without obstruction or gangrene; Z88.0 Allergy status to penicillin; Z79.82 Long term (current) use of aspirin
CPT/HCPCS: 36415; 71046; 80048; 80053; 80307; 80320; 81001; 82607; 82728; 82746; 83540; 83550; 83735; 83880; 84443; 84484; 85014; 85018; 85025; 85379; 85652; 86141; 86850; 86900; 86901; 86920; 93005; 93306; G0378; J1756; J2470